=== PATIENT | female | born 1965 | race Caucasian/White ===

== ENCOUNTER 2017-09-03 09:34 | Emergency (ER) | payer OTHER ==
[~2017-09-03] VITALS: Ht 172.7 cm; Wt 104.3 kg
[2017-09-03] MEDS ORDERED: FLONASE 0.05%50 MCG NASAL (09:44)
[2017-09-03] MEDS ORDERED: ALLEGRA ALLERG180 MG PO (09:44)
[2017-09-03 10:04] LABS: ABSOLUTE BASOPHILS 0.1 thou/uL (0.0-0.2); ABSOLUTE EOSINOPHILS 0.4 thou/uL (0.0-0.7); ABSOLUTE LYMPHOCYTES 2.6 thou/uL (0.8-5.3); ABSOLUTE MONOCYTES 0.5 thou/uL (0.0-1.2); ABSOLUTE NEUTROPHILS 6.1 thou/uL (1.6-8.1); BASOPHILS 0.8 %; EOSINOPHILS 3.8 %; HEMATOCRIT 44.9 % (37.0-47.0); HEMOGLOBIN 15.4 gm/dL (12.0-15.0); LYMPHOCYTES 27.2 %; MCH 30.3 pg (26.0-34.0); MCHC 34.2 g/dL (28.0-37.0); MCV 88.5 fL (80.0-100.0); MONOCYTES 4.8 %; MPV 8.7 fl. (7.2-11.1); NUCLEATED RBCS 0 /100WBC; PLATELET COUNT* 296 thou/uL (150-400); POLYS 63.4 %; RBC 5.08 mil/uL (4.20-5.00); RDW-CV 13.3 % (10.5-14.5); WBC 9.6 thou/uL (4.0-11.0)
[2017-09-03 10:12] LABS: ANION GAP 6 mmol/L (7-16); BUN 11 mg/dL (7-18); CALCIUM 8.8 mg/dL (8.5-10.1); CHLORIDE 104 mmol/L (98-107); CO2 28 mmol/L (21-32); CREATININE 0.8 mg/dL (0.6-1.3); GLUCOSE 91 mg/dL (70-99); POTASSIUM 4.1 mmol/L (3.5-5.1); SODIUM 138 mmol/L (136-145)
[2017-09-03 10:14] LABS: APTT 29.2 Seconds (25.0-31.3); PROTIME 9.6 Seconds (9.20-11.50)
[2017-09-03 10:23] LABS: ALBUMIN 3.7 g/dL (3.4-5.0); ALKALINE PHOSPHATASE 59 U/L (46-116); NT-PRO BRAIN NAT PEPTIDE 144 pg/mL (<300); SGOT 15 U/L (15-37); SGPT 24 U/L (30-65); TOTAL BILIRUBIN 0.3 mg/dL (<0.1-1.0); TOTAL PROTEIN 7.6 g/dL (6.4-8.2); TROPONIN-I LEVEL <0.06 ng/mL (<0.06)
[2017-09-03 10:56] VITALS: BP 172/108
--- NOTE | 2017-09-03 20:19 | EKG ---
[place] [address] ELECTROCARDIOGRAM REPORT Name: ELAINESACHA HARMON Room: [facility]#: [id number] Admission: 09/03/17 Attend Phys: Discharge: 09/03/17 Date of : 63 Report #: [id number] THIS REPORT FOR: //name// [facility] ED Test Date: 2017-09-03 Test Time: 09:47:12 Pat Name: SACHA ELAINE Department: Room: Gender: F Computer Repairer: : 1965 Requested By: Royal Chavez Order Number: [id number] MD: Warren العراقي Measurements Intervals [place] Rate: 78 P: 30 MS: 125 QRS: -5 QRSD: 95 T: 19 QT: 389 QTc: 444 Interpretive Statements Sinus rhythm No previous ECG available for comparison Electronically Signed On 09-03-2017 20:19:28 OCCUPATIONAL THERAPIST PER DIEM by Warren لاعراقي [email or web address] <ELECTRONICALLY SIGNED> By: Warren العراقي MD, [facility] 09/03/17 2019 0947 [id number] Warren العراقي MD, FACC /EPI
== END 2017-09-03 10:57 | disposition home or self-care (01) ==
LOC: M.ERS 09:34
PROVIDERS: Family Medicine
DX: R42 Dizziness and giddiness (principal); Z88.6 Allergy status to analgesic agent; Z91.018 Allergy to other foods